=== PATIENT | male | born 1980 | race African-American/Black ===

== ENCOUNTER 2017-08-26 22:18 | Emergency (ER) | payer OTHER ==
[~2017-08-26] VITALS: Ht 182.9 cm; Wt 75.0 kg
[~2017-08-26 22:18] MED LIST: PENI500T PO; TYLE3 PO; Z.0.NO CURRENT MEDS
[2017-08-26 22:19] VITALS: BP 134/75; PULSE 78; RESP 16; TEMP 97.8; O2SAT 98
[2017-08-27] MEDS ORDERED: CYCLOBENZAPRINE HCL 10 MG TAB PO ONE
[2017-08-27] MEDS ORDERED: NAPROXEN 500 MG TAB PO ONE
[2017-08-27] MEDS ORDERED: CYCL1TAB29 PO (00:05)
[2017-08-27] MEDS ORDERED: DICL75TA PO (00:05)
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
== END 2017-08-27 00:35 | disposition home or self-care (01) ==
LOC: NEPD 22:18
DX: S16.1XXA Strain of muscle, fascia and tendon at neck level, initial encounter (principal); M54.6 Pain in thoracic spine; H92.03 Otalgia, bilateral; F17.200 Nicotine dependence, unspecified, uncomplicated; V89.2XXA Person injured in unspecified motor-vehicle accident, traffic, initial encounter
CPT/HCPCS: 99284